=== PATIENT | female | born 1945 | race Caucasian/White ===

== ENCOUNTER 2017-02-17 05:16 | Inpatient (IN) | payer OTHER, MEDICARE ==
[~2017-02-17] VITALS: Ht 160 cm; Wt 93.0 kg
[2017-02-17] MEDS ORDERED: PRAVASTATIN SOD10 M2 PO (05:29)
[2017-02-17] MEDS ORDERED: TOPROL XL25 M1 PO (05:29)
[2017-02-17] MEDS ORDERED: DEXILANT60 M1 PO (05:30)
[2017-02-17] MEDS ORDERED: ASPIRIN81 M4 PO (05:32)
[2017-02-17] MEDS ORDERED: VITAMIN B-121000 MC3 PO (05:33)
[2017-02-17] MEDS ORDERED: CENTRUM SILVER1 EACH PO (05:33)
[2017-02-17] MEDS ORDERED: VITAMIN D31000 UNI1 PO (05:34)
[2017-02-17] MEDS ORDERED: CITRUCEL500 M1 PO (05:34)
--- NOTE | 2017-02-17 05:54 | ED CARDIAC/CP/PALPITATIONS ---
History of Present Illness General Chief Complaint: Palpitations Stated Complaint: PALPITATIONS Source: patient Exam Limitations: no limitations Vital Signs & Intake/Output Vital Signs & Intake/Output Vital Signs Date Time Temp Pulse Resp B/P B/P Pulse O2 O2 Flow FiO2 Mean Ox Delivery Rate 02/17 0641 84 168/90 02/17 0531 112 26 163/101 95 Room Air Allergies Coded Allergies: MDX - Aspirin (Aspirin) (UNKNOWN 07/21/13) MDX - Ibuprofen (Ibuprofen) (UNKNOWN 07/21/13) MDX - Morphine (Morphine) (NAUSEA 07/21/13) Reconcile Medications Aspirin (Aspirin*) 81 MG TAB.CHEW 81 MG PO DAILY HEART (Reported) Cholecalciferol (Vitamin D3) (Vitamin D3) 1,000 UNIT CAPSULE 1,000 UNIT PO DAILY VITAMIN (Reported) Cyanocobalamin (Vitamin B-12) 1,000 MCG TABLET 1,000 MCG PO DAILY VITAMIN ( Reported) Dexlansoprazole (Dexilant) 60 MG CAP.BP 60 MG PO DAILY GERD (Reported) Methylcellulose (Citrucel) 500 MG TABLET 1,000 MG PO DAILY VITAMIN (Reported) Metoprolol Succinate 25 MG TAB 25 MG PO DAILY HEART (Reported) Multivit-Min/Iron/Folic/Lutein (Centrum Silver Women Tablet) 8 MG IRON-400 MCG- 300 MCG TABLET 8 MG PO DAILY VITAMIN (Reported) Pravastatin Sodium 10 MG TABLET 10 MG PO DAILY CHOLESTEROL (Reported) Triage Note: 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 AFIB PT DENIES HX ALSO CO OF SOME SOB. ARRIVES SL PALE BLE PEDAL EDEMA 1-2+ PER PT HX OF SWELLING TO BLE "DURING WARMER WEATHER Triage Nurses Notes Reviewed? yes HPI: Patient presents for evaluation of intermittent heart palpitations that began abruptly about 2 months ago. Patient states that she has a distant history of atrial fibrillation but this has been well controlled on metoprolol. She states over the past 2 months she's had 3-4 episodes of irregular heart palpitations that typically last 10-15 minutes. Her current episode has lasted closer to an hour. She states she has a little chest heaviness a little shortness of breath and a little pain in the right jaw and ear. She states that although she saw a paper baling machine operator in [place] this was many years ago. Nothing seems to make the palpitations better. Past History Travel History Traveled to [place] past 21 day No Medical History Any Pertinent Medical History? see below for history Neurological: NONE EENT: NONE Cardiovascular: hypertension, CHOL Respiratory: NONE Gastrointestinal: NONE Hepatic: NONE Renal: NONE Musculoskeletal: NONE Psychiatric: NONE Endocrine: NONE Pneumonia Vaccine: 05/13/10 Surgical History Surgical History: non-contributory Psychosocial History Who do you live with Spouse Services at Home None What is your primary language Macedonian Tobacco Use: Never used Family History Hx Contributory? No Review of Systems Review of Systems Constitutional: Reports: no symptoms. EENTM: Reports: no symptoms. Respiratory: Reports: no symptoms. Cardiovascular: Reports: see HPI. GI: Reports: no symptoms. Genitourinary: Reports: no symptoms. Musculoskeletal: Reports: no symptoms. Skin: Reports: no symptoms. Neurological/Psychological: Reports: no symptoms. Hematologic/Endocrine: Reports: no symptoms. Immunologic/Allergic: Reports: no symptoms. All Other Systems: Reviewed and Negative Physical Exam Physical Exam Cardiovascular: SEE BELOW Comments: Gen.: Well-nourished, well-developed, no acute respiratory distress. Head: Normocephalic, atraumatic. Eyes: Normal inspection bilaterally Ears: Normal inspection bilaterally Nose: Normal inspection Throat/mouth : Moist mucosa Neck: Supple, full range of motion, no goiter Heart: Irregular rate and rhythm, no murmurs rubs or gallops Lungs: Clear to auscultation bilaterally with normal air entry Chest: Nontender Back: Normal range of motion Abdomen: Soft, nontender, nondistended, normal bowel sounds Extremities: Normal range of motion grossly, equal radial pulses, no cyanosis clubbing or edema Neurologic: Cranial nerves grossly intact, speech is clear Skin: warm and dry Psychiatric: Calm, cooperative, no apparent delusions or hallucinations Core Measures ACS in differential dx? No Severe Sepsis Present: No Septic Shock Present: No Progress Differential Diagnosis: atrial fibrillation Plan of Care: Orders Procedure Date/time Status Admit to inpatient 02/17 653 Active XRY-PORTABLE CHEST XRAY 02/17 535 Active URINALYSIS 02/17 535 Complete TROPONIN LEVEL 02/17 535 Complete PROTHROMBIN TIME 02/17 535 Complete COMPREHENSIVE METABOLIC PANEL 02/17 535 Complete CBC WITHOUT DIFFERENTIAL 02/17 535 Complete B-TYPE NATRIURETIC PEP (BNP) 02/17 535 Complete EKG 02/17 517 Active Current Medications Sig/Casie Start time Last Medication Dose Stop Time Status Admin Diltiazem HCl 125 MG Q12H 02/17 0600 UNVr 02/17 (Cardizem DRIP) 0624 Sodium Chloride 100 ML (Normal Saline 0.9%) Laboratory Tests 02/17/17 0550: Anion Gap 10, Estimated GFR > 60, BUN/Creatinine Ratio 30.0 H, Glucose 93, Calcium 10.0, Total Bilirubin 0.6, AST 26, ALT 34, Alkaline Phosphatase 63, Troponin I < 0.01, Qcd-H-Zdbfsabvnmi Pept 165 H, Total Protein 7.7, Albumin 4.7 , Globulin 3.0, Albumin/Globulin Ratio 1.6, PT 10.8, INR 1.03, CBC w Diff NO MAN DIFF REQ, RBC 4.79, MCV 94.1, MCH 31.4 H, RDW 13.3, MPV 9.9, Gran % 34.9 L, Lymphocytes % 55.1 H, Monocytes % 7.7, Eosinophils % 1.7, Basophils % 0.6, Absolute Granulocytes 1.9, Absolute Lymphocytes 3.0, Absolute Monocytes 0.4, Absolute Eosinophils 0.1, Absolute Basophils 0, PUBS MCHC 33.3 02/17/17 0545: Urinalysis LIGHT H, Urine Color STRAW, Urine Clarity HAZY H, Urine pH 7.0, Ur Specific [place] 1.010, Urine Protein NEG, Urine Ketones NEG, Urine Nitrite NEG, Urine Bilirubin NEG, Urine Urobilinogen 0.2, Ur Leukocyte Esterase NEG, Ur Microscopic SEDIMENT EXAMINED, Urine RBC 3-5, Urine Bacteria RARE H, Urine Mucus RARE, Urine Hemoglobin TRACE-INTACT, Urine Glucose NEG Initial ED EKG: rate (110), AFIB, nonspecific ST T wave chg Prior EKG: changed (nsr ON PRIOR) Comments: 02/17/2017 6:50:28 AM patient's case discussed with hospitalist and Dr. Jose Simpson. I have held on heparinization as I am optimistic that the patient will convert based on her history of relatively brief episodes of atrial fibrillation. Departure Departure Disposition: STILL A PATIENT Condition: Stable Clinical Impression Primary Impression: Atrial fibrillation Qualifiers: Atrial fibrillation type: paroxysmal Qualified Code: I48.0 - Paroxysmal atrial fibrillation Referrals: DARBY TOBAR MD (PCP/Family) Departure Forms: Customer Survey General Discharge Information Admission Note Spoke With: BRIAN BROWN,TIFFANY Heath Documentation of Exam: Documentation of any treatments & extenuating circumstances including Concerns Regarding Discharge (functional status, medication knowledge or non-compliance, living conditions, etc.) that warrant an admission rather than observation: Patient is in a paroxysmal atrial fibrillation, placing her at risk of tachycardia, hypotension, chest pain, shortness of breath and cardioembolic phenomenon including stroke. Patient currently requires an IV Cardizem drip for rate control. I do not feel she is a good candidate for outpatient management given the need for the IV Cardizem drip and continuous cardiac monitoring. I feel this patient needs hospitalization and cardiology consultation. Anticoagulation should be considered if the patient's atrial fibrillation does not resolve rapidly. Serial troponin should also be obtained. Echocardiogram should also be obtained for possible valve disease. Patient's medications will need adjusting. Given this patient's advanced age and history of hypertension, I feel she will require a multiple day hospitalization. Critical Care Note Critical Care Note Critical Care Time: 30-74 min
[2017-02-17 05:59] LABS: ABSOLUTE BASOPHIL COUNT 0 /CUMM (0.0-0.2); ABSOLUTE EOSINOPHIL COUNT 0.1 /CUMM (0.0-0.7); ABSOLUTE GRANULOCYTE CT 1.9 /CUMM (1.4-6.5); ABSOLUTE MONOCYTE COUNT 0.4 /CUMM (0.10-0.60); BASOPHIL % 0.6 % (0.0-2.0); EOSINOPHIL % 1.7 % (0-5); GRANULOCYTE % 34.9 % (42.2-75.2); HEMATOCRIT 45.1 % (37-47); MEAN CORPUSCULAR HGB 31.4 PG (27.0-31.0); MEAN CORPUSCULAR HGB CONC 33.3 G/DL (33.0-37.0); MEAN CORPUSCULAR VOLUME 94.1 FL (81.0-99.0); MEAN PLATELET VOLUME 9.9 FL (7.4-10.4); PLATELET COUNT 183 /CUMM (130-400); RBC DISTRIBUTION WIDTH 13.3 % (11.5-14.5); RED BLOOD CELL CT 4.79 /CUMM (4.20-5.40); WHITE BLOOD CELL COUNT 5.4 /CUMM (4.8-10.8)
[2017-02-17 06:05] LABS: PT 10.8 SEC (9.4-12.5)
--- NOTE | 2017-02-17 07:17 | RADIOLOGY REPORT ---
EXAMINATION: XR PORTABLE CHEST CLINICAL INFORMATION: Palpitations. COMPARISON: 05/13/2010 TECHNIQUE: Portable AP view of the chest was obtained. FINDINGS: The lung volumes are decreased with the cardiac silhouette obscuring visualization of the left lower lobe. No evidence of pulmonary edema or obvious pleural effusion. The cardiac silhouette is mildly enlarged, unchanged. IMPRESSION: Low lung volumes. Cardiac silhouette mildly enlarged, unchanged. The lungs are clear.
--- NOTE | 2017-02-17 09:15 | History & Physical ---
PARMINDER BROWN,[facility] 02/17/17 0913: General Information and [facility] MD Statement: I have seen and personally examined GLENN BALES and documented this H&P. The patient is a 72 year old F who presented with a patient stated chief complaint of [Palpitations and chest discomfort]. Source of Information: patient, old records Exam Limitations: no limitations History of Present Illness: Ms. Bales is a 72 year old woman with a past medical history of hypertension, hyperlipidemia, intermittent palpitations, GERD, irritable bowel syndrome, osteopenia and chronic back pain. She presents with sudden onset of palpitations, shortness of breath and retrosternal chest discomfort this morning. She has been having intermittent episodes of palpitations lasting about 10 minutes over the last few months, and indeed her history of palpitations go back to 2009 when she was admitted and worked up for similar symptoms in . An echocardiogram at that time in 2009 showed a normal EF of 60% and she states that she subsequently had a negative stress test in [facility]. However this morning after waking up around 4:30 am and going to urinate in the bathroom she developed palpitations while she was sitting at rest. This was associated with retrosternal chest discomfort that was 7/10 intensity and involved the right side of her jaw and right ear. She also had associated shortness of breath, lightheadedness and sweating but denied nausea or vomiting. Her entire episode lasted about 45 minutes until she was brought to the ER by her . It was relieved after she was started on a IV Cardizem drip in the ER. She also noted intermittent leg swelling that has been going on for some years and she states that this is usually worse during the summer. She denies orthopnea or paroxysmal nocturnal dyspnea. She denies cough, shortness of breath, wheeze, abdominal pain, diarrhea, constipation (patient does have a history of irritable bowel syndrome with constipation intermittent with diarrhea), bleeding per rectum, loss of appetite, dysuria or hematuria (she does have urge incontinence and is on tolterodine and diapers). She denies headache, numbness or weakness of any part of the body. She does note some mechanical falls over the past year and states that she has problems with her balance. Allergies/Medications Allergies: Coded Allergies: aspirin (UNKNOWN 02/17/17) ibuprofen (UNKNOWN 02/17/17) morphine (NAUSEA 02/17/17) Home Med list Apixaban (Eliquis) 5 MG TABLET 1 TAB PO BID BLOOD THINNER Cholecalciferol (Vitamin D3) (Vitamin D3) 1,000 UNIT CAPSULE 1,000 UNIT PO DAILY VITAMIN (Reported) Cyanocobalamin (Vitamin B-12) 1,000 MCG TABLET 1,000 MCG PO DAILY VITAMIN ( Reported) Dexlansoprazole (Dexilant) 60 MG CAP.DR.BP 60 MG PO DAILY GERD (Reported) Dronedarone HCl (Multaq) 400 MG TABLET 1 TAB PO BID atrial fibrillation Methylcellulose (Citrucel) 500 MG TABLET 1,000 MG PO DAILY VITAMIN (Reported) Metoprolol Succ XL (Toprol XL) 25 MG TAB 0.5 TAB PO DAILY Blood pressure ( Reported) Multivit-Min/Iron/Folic/Lutein (Centrum Silver Women Tablet) 8 MG IRON-400 MCG- 300 MCG TABLET 8 MG PO DAILY VITAMIN (Reported) Pravastatin Sodium 10 MG TABLET 10 MG PO DAILY CHOLESTEROL (Reported) Tolterodine Tartrate (Detrol LA) 4 MG CAP.ER.24H 1 CAP PO DAILY Bladder/urge incontinence (Reported) Compliance With Home Meds: GOOD Past History Travel History Traveled to [place] past 21 day No Medical History Neurological: NONE EENT: NONE Cardiovascular: hypertension, CHOL, palpitations Respiratory: NONE Gastrointestinal: GERD, irritable bowel syndrome Hepatic: NONE Renal: NONE Musculoskeletal: chronic back pain Psychiatric: NONE Endocrine: NONE Isolation History: Standard Pneumonia Vaccine: 05/13/10 Surgical History Surgical History: cholecystectomy (laparoscopic 2012), cataract removal ( bilateral), hysterectomy, Hand surgery 1994, left knee replacement 2005 ECHO Results (as available) Date of last Echo 05/13/10 EF% 60 Past Family/Social History Family History Relations & Conditions if any SISTER FH: CHF (congestive heart failure) MOTHER FH: heart disease FHx: melanoma Psychosocial History Where do you live? Home Who Do You Live With? spouse Services at Home: None Primary Language: Namibian Smoking Status: Former Smoker (4 years in college-1 stick/day) ETOH Use: occasional use Illicit Drug Use: denies illicit drug use Functional Ability ADLs Independent: dressing, eating, toileting, bathing. 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 Denies: chills, fever, malaise, weakness. EENTM: Denies: visual changes, throat pain. Musculoskeletal: Reports: back pain. Exam & Diagnostic Data Last 24 Hrs of Vital Signs/I&O Vital Signs Date Time Temp Pulse Resp B/P B/P Pulse O2 O2 Flow FiO2 Mean Ox Delivery Rate 02/17 0951 98.6 68 20 132/82 97 Room Air 02/17 0818 96.6 69 15 148/75 99 Room Air Room Air 02/17 0641 84 168/90 02/17 0531 112 26 163/101 95 Room Air Intake & Output 02/17 1600 02/17 0800 02/17 0000 Intake Total Output Total Balance Patient 205 lb 210 lb Weight Weight Estimated Measurement Method Physical Exam General Appearance Alert, Oriented X3, Cooperative, No Acute Distress Skin No Rashes, No Breakdown Skin Temp/Moisture Exam: Warm/Dry Sepsis Skin Exam (color): Normal for Ethnicity HEENT Atraumatic, PERRLA, EOMI, Mucous Membr. moist/pink Neck Supple, No JVD, No thryomegaly Lymphatic Cervical nl Cardiovascular Normal S1, Normal S2, No Murmurs, irregularly irregular heart rhythm Lungs Clear to Auscultation, Normal Air Movement Abdomen Normal Bowel Sounds, Soft, No Tenderness, No Hepatospenomegaly, No Masses Neurological Normal Speech, Strength at 5/5 X4 Ext, Normal Tone Extremities +2 bilateral pedal edema Diagnostic Data EKG Results A. eliezer heart rate 110 bpm, QTC 466 ms CXR Results Cardiac silhouette mildly enlarged and unchanged. Lungs clear. Assessment/Plan Assessment: Ms. Bales is a 72 year old woman with a past medical history of hypertension, hyperlipidemia, intermittent palpitations, GERD, irritable bowel syndrome, osteopenia and chronic back pain. She presents with sudden onset of palpitations , shortness of breath and retrosternal chest discomfort this morning. Indeed her palpitation history goes back to 2009 when she was evaluated in with no significant findings. From her history and presentation, it is likely that she has been in paroxysmal atrial fibrillation , likely related to her hypertension, for some time now. Her [id number] score is 3 which indicates the need for anticoagulation. Her heart rate is now better controlled on Cardizem drip and she is free of chest discomfort and her palpitations are very mild at this time. She will be admitted to the telemetry unit for IV Cardizem drip and we will pursue cardiology consultation. She willl be started on a heparin drip and her home medications for hypertension-PO metoprolol XL 12.5 mg daily will be continued. In addition a PT evaluation would be obtained to evaluate her reported balance problems and recent mechanical falls at home. Problem list 1. Paroxysmal atrial fibrillation with rapid ventricular rate 2. Hypertension 3. GERD 4. Hyperlipidemia 5. Reported history of gait instability at home 6. History of chronic back pain 7. History of irritable bowel syndrome Plan 1. Paroxysmal atrial fibrillation with rapid ventricular rate * Admit to telemetry * Serial EKGs and troponins to rule out acute coronary syndrome * Echocardiogram * Cardiology consult and follow recommendations * Check TSH, free T4, magnesium and replete as needed * Continue Cardizem drip for rate control to keep her heart rate less than 110 beats per minutes * Start IV heparin drip (rectal stool guaiac was negative) * Monitor CBC for thrombocytopenia 2. Hypertension * Continue home medication of metoprolol XL 12.5 mg daily (patient has taken dose this morning) 3. GERD * Start by mouth omeprazole 40 mg daily 4. Hyperlipidemia * Continue pravastatin 10 daily 5. Reported history of gait instability at home * PT evaluation in the morning for gait imbalance and discharge recommendations 6. History of chronic back pain * Pain pathway by mouth Tylenol 650 mg Q 6 hrs PRN for mild pain, PO tramadol 50 mg Q 6 hrs PRN for moderate pain 7. History of irritable bowel syndrome * PO Senna S one tab twice a day when necessary for constipation 8. DVT prophylaxis * IV heparin drip 9. CODE STATUS * Full code As Ranked By This Provider Problem List: 1. Atrial fibrillation Qualifiers Atrial fibrillation type: paroxysmal Qualified Code: I48.0 - Paroxysmal atrial fibrillation Core Measures/Miscellaneous Acute Coronary Syndrome ACS Diagnosis: No Cerebrovascular Accident CVA/TIA Diagnosis: No Congestive Heart Failure CHF Diagnosis: No VTE (View Protocol) VTE Risk Factors: Acute medical illness, Age > 40 [facility] d/t: No contraindications No VTE Pharm Prophylaxis d/t: No contraindications VTE Diagnosis: No VTE Type: NONE VTE Confirmed by (Test): NONE Sepsis (View Protocol) Severe Sepsis Present: No Septic Shock Septic Shock Present: No Miscellaneous Documentation Attending Case Discussed With: D'ROSSTIFFANY ULLOA MD Primary Care Physician: DARBY TOBAR MD Patient sees these Specialists None Level of Patient Care: Telemetry Consults Needed: Consulting Specialty: Cardiology Consulting Physician: Dr. Rodriguez Reason for Consult: New onset atrial fibrillation TIFFANY TORRES MD 02/17/17 1143: Attending Review Statement Attending Statement Attending MD Statement: examined this patient, discuss w/resident/PA/PULP PLANT SUPERVISOR, agreed w/resident/PA/P[employer]P PLANT SUPERVISOR, reviewed EMR data (avail), reviewed images Attending Assessment/Plan: 72-year-old female past medical history of hypertension hyperlipidemia and GERD and a history of palpitations on and off for the past year who is here with new onset rapid A. fib of unclear duration. At this point will bring her into telemetry. Continue her by mouth metoprolol and she's been started on IV Cardizem by the ER 48 control. I am worried that given the history of palpitations on and off for the past year that she may have been going in and out of A. fib and will anticoagulate her empirically until we get the results of the echo and cardiology sees her. We'll check troponins to make sure that she doesn't have any ischemic demand in response to the rapid A. fib. Check TSH and free T4 but likely this is going to be long-standing hypertensive heart disease leading to A. fib. Will order an echo, call cardiology and follow closely.
[2017-02-17] MEDS ORDERED: GINKGO BILOBA40 M1 PO (09:29)
[2017-02-17] MEDS ORDERED: DETROL LA4 M1 PO (09:30)
[2017-02-17 09:51] VITALS: BP 132/82
--- NOTE | 2017-02-17 10:02 | Admission Certification ---
Admission Certification Certification Statement - As attending physician, I certify that at the time of - admission, based on clinical presentation, severity of - symptoms, need for further diagnostic testing and - therapeutic interventions, and risk of adverse outcomes - without in-hospital treatment, in my clinical assessment, - this patient requires an acute hospital stay for a minimum - of two nights or longer. I have also considered psychsocial - factors such as support system, advanced age, financial - issues, cognitive issues, and failed out-patient treatments, - past re-admission history, safety of patient, and lack of - compliance as applicable. Specific rationale supporting this admission is: New onset rapid A. fib needs IV Cardizem for rate control.
--- NOTE | 2017-02-17 11:38 | Cons- Cardiology ---
General Information and HPI Consulting Request Date of Consult: 02/17/17 Requested By: TIFFANY TORRES MD Reason for Consult: "New onset" atrial fibrillation. Source of Information: patient Exam Limitations: no limitations History of Present Illness: Mrs. Bales is a 72-year-old female who has been generally healthy. She is being treated for hypertension and dyslipidemia. She does not have any history of ischemic heart disease or any chest pain or shortness of breath on exertion. She was here in 2009 for a brief overnight evaluation of palpitations where she was found only to have PVCs. At that time she was advised to have a an outpatient stress test which she apparently had in [place] and was told it was negative. She has not subsequently needed to follow-up with cardiology but has been following with her primary care physician, Darby Tobar MD. Over the past few months she has noted palpitations which she describes as pounding and thumping in the chest lasting about 15 minutes or so. This morning she got up at about 4:30 in the morning to go to the bathroom and noticed the same palpitations. However, this did not resolve in the usual period of time and she came to the emergency room. She got here about 5:20 in the morning and her EKG at that time showed atrial fibrillation at a rate of 110 and no other acute changes. She was started on Cardizem drip and transferred to the floor where she spontaneously converted to sinus rhythm at around 10 AM. At that time she began to feel better. She did not have any chest pain but she did have some discomfort in her jaw at that time. She has not had any other cardiac symptoms such as orthopnea, PND, ankle edema, dizziness, syncope. Allergies/Medications Allergies: Coded Allergies: aspirin (UNKNOWN 02/17/17) ibuprofen (UNKNOWN 02/17/17) morphine (NAUSEA 02/17/17) Home Med List: Aspirin (Aspirin*) 81 MG TAB.CHEW 81 MG PO DAILY HEART (Reported) Cholecalciferol (Vitamin D3) (Vitamin D3) 1,000 UNIT CAPSULE 1,000 UNIT PO DAILY VITAMIN (Reported) Cyanocobalamin (Vitamin B-12) 1,000 MCG TABLET 1,000 MCG PO DAILY VITAMIN ( Reported) Dexlansoprazole (Dexilant) 60 MG CAP.DR.BP 60 MG PO DAILY GERD (Reported) Ginkgo Biloba 40 MG CAPSULE 5 CAP PO DAILY supplement (Reported) Methylcellulose (Citrucel) 500 MG TABLET 1,000 MG PO DAILY VITAMIN (Reported) Metoprolol Succ XL (Toprol XL) 25 MG TAB 0.5 TAB PO DAILY Blood pressure ( Reported) Multivit-Min/Iron/Folic/Lutein (Centrum Silver Women Tablet) 8 MG IRON-400 MCG- 300 MCG TABLET 8 MG PO DAILY VITAMIN (Reported) Pravastatin Sodium 10 MG TABLET 10 MG PO DAILY CHOLESTEROL (Reported) Tolterodine Tartrate (Detrol LA) 4 MG CAP.ER.24H 1 CAP PO DAILY Bladder/urge incontinence (Reported) Current Medications: Current Medications Sig/Casie Start time Last Medication Dose Route Stop Time Status Admin Acetaminophen 650 MG Q6P PRN 02/17 1100 AC PO Apixaban 5 MG BID 02/17 2200 AC 02/18 PO 0955 Aspirin 81 MG DAILY 02/18 1000 AC 02/18 PO 1052 Calcium Carbonate 500 MG ONCE ONE 02/17 2015 DC 02/17 PO 02/17 2016 204 Cholecalciferol 1,000 IU DAILY 02/17 1000 AC 02/18 PO 1052 Cyanocobalamin 1,000 MCG DAILY 02/17 1000 AC 02/18 PO 1052 Diltiazem HCl 125 MG Q12H 02/17 0600 DC 02/17 Sodium Chloride 100 ML IV 0624 Dronedarone 400 MG BID 02/17 1500 AC 02/18 PO 0955 Heparin Sodium 25,000 UNIT Q24H / 1000 DC 02/17 (Porcine) IV / 2100 1302 Sodium Chloride 500 ML Metoprolol Succinate 12.5 MG DAILY 02/18 1000 AC PO Multivitamins 1 TAB DAILY 02/17 1000 AC 02/18 PO 1052 Omeprazole 40 MG DAILY AC 02/17 0945 AC 02/18 PO 0559 Oxybutynin Chloride 2.5 MG TID 02/17 1000 AC 02/18 PO 1052 Pravastatin Sodium 10 MG 1700 02/17 1700 AC 02/17 PO 1634 Senna/Docusate Sodium 1 TAB BID PRN 02/17 1100 AC PO Tramadol HCl 50 MG Q6P PRN 02/17 1100 AC PO Review of Systems Review of Systems: She has no other complaints in the review of systems. 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 Home Who Do You Live With? spouse Services at Home: None Primary Language: Armenian Smoking Status: Former Smoker (4 years in college-1 stick/day) ETOH Use: occasional use Illicit Drug Use: denies illicit drug use Functional Ability ADLs Independent: dressing, eating, toileting, bathing. 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 ECHO Results (as available) Date of last Echo 05/13/10 EF% 60 Exam & Diagnostic Data Vital Signs and I&O Vital Signs Date Time Temp Pulse Resp B/P B/P Pulse O2 O2 Flow FiO2 Mean Ox Delivery Rate 02/17 0951 98.6 68 20 132/82 97 Room Air 02/17 0818 96.6 69 15 148/75 99 Room Air Room Air 02/17 0641 84 168/90 02/17 0531 112 26 163/101 95 Room Air Intake & Output 02/17 1600 02/17 0800 02/17 0000 02/16 1600 02/16 0800 02/16 0000 Intake Total Output Total Balance Patient 205 lb 210 lb Weight Weight Estimated Measurement Method Physical Exam: This is a well-developed obese elderly female in no acute distress HEENT exam is normal Neck veins not distended Carotids normal without bruits Chest clear to percussion and auscultation Heart regular rhythm, no murmurs, gallops or rubs Abdomen benign Extremities good pulses, no edema Labs/Toro Results: Laboratory Tests 02/17 02/17 0550 0545 Chemistry Sodium (137 - 145 mmol/L) 145 Potassium (3.5 - 5.1 mmol/L) 4.1 Chloride (98 - 107 mmol/L) 109 H Carbon Dioxide (22 - 30 mmol/L) 26 Anion Gap (5 - 16) 10 BUN (7 - 17 mg/dL) 15 Creatinine (0.5 - 1.0 mg/dL) 0.5 Estimated GFR (>60 ml/min) > 60 BUN/Creatinine Ratio (7 - 25 %) 30.0 H Glucose (65 - 99 mg/dL) 93 Calcium (8.4 - 10.2 mg/dL) 10.0 Magnesium (1.6 - 2.3 mg/dL) 2.1 Total Bilirubin (0.2 - 1.3 mg/dL) 0.6 AST (14 - 36 U/L) 26 ALT (9 - 52 U/L) 34 Alkaline Phosphatase (<127 U/L) 63 Troponin I (< 0.11 ng/ml) < 0.01 Imt-[id number] Pept (<125 pg/mL) 165 H Total Protein (6.3 - 8.2 g/dL) 7.7 Albumin (3.5 - 5.0 g/dL) 4.7 Globulin (1.9 - 4.2 gm/dL) 3.0 Albumin/Globulin Ratio (1.1 - 2.2 %) 1.6 TSH (0.270 - 4.200 uIU/mL) 2.380 Free T4 (0.78 - 2.44 ng/dL) 0.92 Coagulation PT (9.4 - 12.5 SEC) 10.8 INR (0.90 - 1.19) 1.03 Hematology CBC w Diff NO MAN DIFF REQ WBC (4.8 - 10.8 /CUMM) 5.4 RBC (4.20 - 5.40 /CUMM) 4.79 Hgb (12.0 - 16.0 G/DL) 15.0 Hct (37 - 47 %) 45.1 MCV (81.0 - 99.0 FL) 94.1 MCH (27.0 - 31.0 PG) 31.4 H RDW (11.5 - 14.5 %) 13.3 Plt Count (130 - 400 /CUMM) 183 MPV (7.4 - 10.4 FL) 9.9 Gran % (42.2 - 75.2 %) 34.9 L Lymphocytes % (20.5 - 51.1 %) 55.1 H Monocytes % (1.7 - 9.3 %) 7.7 Eosinophils % (0 - 5 %) 1.7 Basophils % (0.0 - 2.0 %) 0.6 Absolute Granulocytes (1.4 - 6.5 /CUMM) 1.9 Absolute Lymphocytes (1.2 - 3.4 /CUMM) 3.0 Absolute Monocytes (0.10 - 0.60 /CUMM) 0.4 Absolute Eosinophils (0.0 - 0.7 /CUMM) 0.1 Absolute Basophils (0.0 - 0.2 /CUMM) 0 PUBS MCHC (33.0 - 37.0 G/DL) 33.3 Urines Urinalysis LIGHT H Urine Color (YEL,AMB,STR) STRAW Urine Clarity (CLEAR) HAZY H Urine pH (5.0 - 8.0) 7.0 Ur Specific [place] (1.001 - 1.035) 1.010 Urine Protein (NEG,<30 MG/DL) NEG Urine Ketones (NEG) NEG Urine Nitrite (NEG) NEG Urine Bilirubin (NEG) NEG Urine Urobilinogen (0.1 - 1.0 EU/dl) 0.2 Ur Leukocyte Esterase (NEG) NEG Ur Microscopic SEDIMENT EXAMINED Urine RBC (0 - 5 /HPF) 3-5 Urine Bacteria (NEG/NONE) RARE H Urine Mucus (FEW,NONE) RARE Urine Hemoglobin (NEG) TRACE-INTACT Urine Glucose (N MG/DL) NEG Diagnostic Data EKG Results Initial electrocardiogram at 5:21 AM showed atrial fibrillation rate of 110, borderline left axis deviation, nonspecific T-wave changes. Repeat EKG at 10 AM shows sinus rhythm rate of 66, borderline left axis deviation, very minor nonspecific anterior T-wave changes. CXR Results IMPRESSION: Low lung volumes. Cardiac silhouette mildly enlarged, unchanged. The lungs are clear. DICTATED BY: KIKA DE JESUS MD DATE/TIME DICTATED:02/17/17711 FLUTE TEACHER:TAVO DATE/TIME TRANSCRIBED:02/17/17711 CONFIDENTIAL, DO NOT COPY WITHOUT APPROPRIATE AUTHORIZATION. <Electronically signed in Other Vendor System> SIGNED BY: KKIA DE JESUS MD 02/17/17716 Assessment/Plan Assessment/Plan Mrs. Bales is a 72-year-old female with underlying hypertension, dyslipidemia, obesity but no ischemic heart disease. She does have an enlarged heart on chest x-ray. Her EKG in sinus rhythm is basically unremarkable. She has had several months of brief palpitations which have spontaneously resolved. This morning she developed a prolonged episode of palpitations and was found to be in atrial fibrillation at a moderate rate. She has subsequently spontaneously converted to sinus rhythm. There is no evidence of congestive heart failure. The patient's evaluation should consist of an echocardiogram. I would recommend starting her on an antiarrhythmic drug such as Multaq to hopefully stabilize her rhythm. I think she should also be anticoagulated and I would pick one of the newer oral anticoagulants for this purpose. I would definitely watch her for the next 24 hours on the monitor to see if she has any recurrence of atrial fibrillation. If she does not and her echo does not show anything major she can probably be discharged tomorrow. Copies To: DARBY TOBAR MD Consult Acknowledgment - Thank you for your consult request.
[2017-02-17 15:50] VITALS: BP 122/64
[2017-02-17 23:06] VITALS: BP 120/68
--- NOTE | 2017-02-18 06:47 | PN- Housestaff ---
See Addendum Subjective Follow-up For: 1. Paroxysmal atrial fibrillation with rapid ventricular rate 2. Hypertension Complaints: no complaints Tele-Events Since Last Visit: sinus bradycardia, 42-92, this morning she is at 52 Subjective: I personally examined Mrs Ricky Olivia this morning at bed side , she was feeling better with no complains , breathing room air Review of Systems Constitutional: Denies: no symptoms. EENTM: Reports: no symptoms. Cardiovascular: Reports: see HPI. Respiratory: Reports: no symptoms. Gastrointestinal: Reports: vomiting. Genitourinary: Reports: no symptoms. Musculoskeletal: Reports: no symptoms. Skin: Reports: no symptoms. Neurological/Psychological: Reports: no symptoms. Hematologic/Endocrine: Reports: no symptoms. Immunologic/Allergic: Reports: no symptoms. Objective Last 24 Hrs of Vital Signs/I&O Vital Signs Date Time Temp Pulse Resp B/P B/P Pulse O2 O2 Flow FiO2 Mean Ox Delivery Rate 02/18 0720 98.8 61 18 148/72 96 Room Air 02/18 0000 95 Room Air 02/17 2333 67 120/78 02/17 2306 98.2 58 18 120/68 95 Room Air 02/17 1550 97.8 53 16 122/64 97 Room Air 02/17 0951 98.6 68 20 132/82 97 Room Air 02/17 0818 96.6 69 15 148/75 99 Room Air Room Air Intake & Output 02/18 1600 /03 0800 02/18 0000 Intake Total 150 530 Output Total 50 Balance 100 530 Intake, IV 180 Intake, Oral 150 350 Output, 50 Emesis Physical Exam General Appearance: Alert, Oriented X3, Cooperative, No Acute Distress Skin: No Rashes, No Breakdown, No Significant Lesion Skin Temp/Moisture Exam: Warm/Dry Sepsis Skin Exam (color): Normal for Ethnicity HEENT: Atraumatic, PERRLA, EOMI, Mucous Membr. moist/pink Neck: Supple, No JVD Cardiovascular: Regular Rate, Normal S1, Normal S2, No Murmurs Lungs: Clear to Auscultation, Normal Air Movement Abdomen: Normal Bowel Sounds, Soft, No Tenderness Neurological: Normal Speech, Strength at 5/5 X4 Ext, Normal Tone, Sensation Intact, Cranial Nerves 3-12 NL Extremities: No Clubbing, No Cyanosis, No Edema (1+ ptting edema bilateral), Normal Pulses, No Tenderness/Swelling Current Medications: Current Medications Sig/Casie Start time Last Medication Dose Route Stop Time Status Admin Acetaminophen 650 MG Q6P PRN 02/17 1100 AC PO Apixaban 5 MG BID 02/17 2200 AC 02/17 PO 1930 Aspirin 81 MG DAILY 02/18 1000 AC PO Calcium Carbonate 500 MG ONCE ONE 02/17 2015 DC 02/17 PO 02/17 2016 2045 Cholecalciferol 1,000 IU DAILY 02/17 1000 AC 02/17 PO 1302 Cyanocobalamin 1,000 MCG DAILY 02/17 1000 AC 02/17 PO 1302 Diltiazem HCl 125 MG Q12H 02/17 0600 DC 02/17 Sodium Chloride 100 ML IV 0624 Dronedarone 400 MG BID 02/17 1500 AC 02/17 PO 2333 Enoxaparin Sodium 40 MG DAILY 02/17 1000 CAN SC Heparin Sodium 25,000 UNIT Q24H 02/17 1000 DC 02/17 (Porcine) IV 02/17 2100 1302 Sodium Chloride 500 ML Metoprolol Succinate 12.5 MG DAILY 02/18 1000 AC PO Multivitamins 1 TAB DAILY 02/17 1000 AC 02/17 PO 1302 Omeprazole 40 MG DAILY AC 02/17 0945 AC 02/18 PO 0559 Oxybutynin Chloride 2.5 MG TID 02/17 1000 AC 02/17 PO 2045 Pravastatin Sodium 10 MG 1700 02/17 1700 AC 02/17 PO 1634 Senna/Docusate Sodium 1 TAB BID PRN 02/17 1100 AC PO Tramadol HCl 50 MG Q6P PRN 02/17 1100 AC PO Last 24 Hrs of Lab/Toro Results Last 24 Hrs of Labs/Mics: Laboratory Tests 02/18/17 0635: CBC w Diff Pending, WBC Pending, RBC Pending, Hgb Pending, Hct Pending, MCV Pending, MCH Pending, RDW Pending, Plt Count Pending, MPV Pending, PUBS MCHC Pending 02/17/17 1900: APTT Cancelled 02/17/17 1800: Troponin I Cancelled 02/17/17 1225: Troponin I < 0.01 Orders EKG Findings: 02/17/17 Initial electrocardiogram at 5:21 AM showed atrial fibrillation rate of 110, borderline left axis deviation, nonspecific T-wave changes. Repeat EKG at 10 AM shows sinus rhythm rate of 66, borderline left axis deviation, very minor nonspecific anterior T-wave changes. Radiology Findings: Cardiac silhouette mildly enlarged and unchanged. Lungs clear. Assessment/Plan Assessment: Assessment: Ms. Bales is a 72 year old lady with a past medical history of hypertension, hyperlipidemia, intermittent palpitations, GERD, irritable bowel syndrome, osteopenia and chronic back pain. She presented yesterday with sudden onset of palpitations, shortness of breath and retrosternal chest discomfort, the patient feels much better today , she remained in sinus rhythm for the last 24 hours, she reported only one episode of vomiting of small amount of bilious non bloody vomitus, Her echocardiogram did not show any major abnormalities, just LVH Plan * patient was stable at the time of discharge * She was advised to follow-up with Dr. Rodriguez within 2 weeks of discharge , * She was advised follow up with her PCP within 1 week of discharge * her aspirin was stopped for now as per cardiology recommendation * She was advised to take her medications as instructed Problem List: 1. Atrial fibrillation 2. Hypertension 3. GERD (gastroesophageal reflux disease) 4. Hyperlipidemia 5. History of chronic back pain 6. History of irritable bowel syndrome Pain Ratin Pain Location: n/a Pain Goal: Remain pain free Pain Plan: Avoid NSAIDs Tomorrow's Labs & Rationales: Patient does not require as discharged DVT/Prophylaxis: early ambulation low risk Consulting Request: Consulting Specialty: Cardiology Consulting Physician: Dr. Rodriguez Reason for Consult: New onset atrial fibrillation 50 mg Q 6 hrs PRN for moderate pain 7. History of irritable bowel syndrome * PO Senna S one tab twice a day when necessary for constipation 8. DVT prophylaxis * IV heparin drip 9. CODE STATUS * Full code Consulting Request: Consulting Specialty: Cardiology Consulting Physician: Dr. Rodriguez Reason for Consult: New onset atrial fibrillation
[2017-02-18 07:20] VITALS: BP 148/72
[2017-02-18 08:04] LABS: ABSOLUTE BASOPHIL COUNT 0 /CUMM (0.0-0.2); ABSOLUTE EOSINOPHIL COUNT 0.1 /CUMM (0.0-0.7); ABSOLUTE GRANULOCYTE CT 3.4 /CUMM (1.4-6.5); ABSOLUTE LYMPH COUNT 1.2 /CUMM (1.2-3.4); ABSOLUTE MONOCYTE COUNT 0.3 /CUMM (0.10-0.60); RED BLOOD CELL CT 4.16 /CUMM (4.20-5.40)
[2017-02-18 08:32] LABS: BASOPHIL % 0.4 % (0.0-2.0); EOSINOPHIL % 1.2 % (0-5); MEAN CORPUSCULAR HGB 31.7 PG (27.0-31.0); MEAN CORPUSCULAR HGB CONC 33.7 G/DL (33.0-37.0); MEAN PLATELET VOLUME 10.6 FL (7.4-10.4); PLATELET COUNT 153 /CUMM (130-400); RBC DISTRIBUTION WIDTH 13.4 % (11.5-14.5)
[2017-02-18 08:40] LABS: GRANULOCYTE % 68.1 % (42.2-75.2); HEMATOCRIT 39.1 % (37-47)
--- NOTE | 2017-02-18 09:51 | ECHOCARDIOGRAM REPORT ---
GLENN FINN Age: 72 : 1945 Gender: F Exam Date: 02/17/2017 14:11 Exam Location: 1 [address] Ht (in): 63 Wt (lb): 204 BSA: 2.07 BP: 132 / 82 Ordering Physician: BRENDAN ZURITA MD Referring Physician: Jose Rodriguez MD Chief, SoC Technologist: Rosa M Solitario [facility] Room Number: [id number] Indications: AFIB/FLUTTER Rhythm: Sinus Technical Quality: Good FINDINGS Left Ventricle Normal size left ventricle. Moderate concentric left ventricular hypertrophy. Normal left ventricular ejection fraction visually estimated at >65 %. No obvious regional wall motion abnormalities. Abnormal relaxation filling pattern of the left ventricle for age (stage 1 diastolic dysfunction). Right Ventricle The right ventricle is normal in size and function. Right Atrium The right atrium is normal in size. Left Atrium The left atrium is normal in size. The interatrial septum is intact. Mitral Valve Mild thickening/calcification of the mitral valve leafleta. Mild mitral annular calcification. No mitral regurgitation. Aortic Valve Focal thickening of the aortic valve cusps. No aortic stenosis. Mild aortic regurgitation. Tricuspid Valve The tricuspid valve is normal in structure and function. There is trace tricuspid regurgitation. Pulmonary artery systolic pressure is normal. Pulmonic Valve Structurally normal pulmonic valve. There is mild pulmonic regurgitation. Pericardium Normal pericardium without effusion. No pleural effusion. Great Vessels The aortic root and ascending aorta are upper limits of normal in diameter. CONCLUSIONS Moderate concentric left ventricular hypertrophy. Normal left ventricular ejection fraction visually estimated at >65 Abnormal relaxation filling pattern of the left ventricle for age (stage 1 diastolic dysfunction). The left atrium is normal in size. Mild thickening/calcification of the mitral valve leafleta. Mild mitral annular calcification. Focal thickening of the aortic valve cusps. No aortic stenosis. Mild aortic regurgitation. Pulmonary artery systolic pressure is normal. The aortic root and ascending aorta are upper limits of normal in diameter. Jose Rodriguez M.D. (Electronically Signed) Final Date: 18 February 2017 09:50 MEASUREMENTS (Male / Female) Normal Values 2D ECHO LV Diastolic Diameter PLAX 4.4 cm 4.2 - 5.9 / 3.9 - 5.3 cm LV Systolic Diameter PLAX 2.3 cm 2.1 - 4.0 cm LV Fractional Shortening PLAX 47.7 % 25 - 46 % LV Ejection Fraction 2D Teich 79.3 % IVS Diastolic Thickness 1.4 cm LVPW Diastolic Thickness 1.3 cm LV Relative Wall Thickness 0.6 RV Internal Dim ED PLAX 3.4 cm 1.9 - 3.8 cm LVOT Diameter 2.1 cm Aortic Root Diameter 3.4 cm LA Systolic Diameter LX 4.5 cm 3.0 - 4.0 / 2.7 - 3.8 cm LA Volume 37.0 cm 18 - 58 / 22 - 52 cm Ascending Aorta Diameter 3.6 cm DOPPLER AV Peak Velocity 105.0 cm/s AV Peak Gradient 4.4 mmHg AV Mean Velocity 70.7 cm/s AV Mean Gradient 2.0 mmHg AV Velocity Time Integral 24.5 cm LVOT Peak Velocity 77.5 cm/s LVOT Peak Gradient 2.4 mmHg LVOT Mean Velocity 48.6 cm/s LVOT Mean Gradient 1.0 mmHg LVOT Velocity Time Integral 15.2 cm LVOT Stroke Volume 52.6 cm AV Area Cont Eq vti 2.1 cm AV Area Cont Eq pk 2.6 cm MV Peak Velocity 105.0 cm/s MV Peak Gradient 4.4 mmHg MV Mean Velocity 59.8 cm/s MV Mean Gradient 2.0 mmHg Mitral E Point Velocity 59.2 cm/s Mitral A Point Velocity 92.8 cm/s Mitral E to A Ratio 0.6 MV PHT Velocity 78.2 cm/s MV Deceleration [place] 212.0 cm/s MV Pressure Half Time 110.7 ms MV Area PHT 2.0 cm MV Deceleration Time 280.0 ms TR Peak Velocity 176.0 cm/s TR Peak Gradient 12.4 mmHg Right Atrial Pressure 5.0 mmHg Pulmonary Artery Systolic Pressu 17.4 mmHg Right Ventricular Systolic Press 17.4 mmHg PV Peak Velocity 91.9 cm/s PV Peak Gradient 3.4 mmHg PV Mean Velocity 67.2 cm/s PV Mean Gradient 2.0 mmHg PV Velocity Time Integral 25.5 cm LV E' Lateral Velocity 4.2 cm/s Mitral E to LV E' Lateral Ratio 14.1 LV E' Septal Velocity 6.1 cm/s Mitral E to LV E' Septal Ratio 9.6
[2017-02-18 09:56] VITALS: BP 148/72
[2017-02-18] MEDS ORDERED: MULTAQ400 M1 PO (11:02)
[2017-02-18] MEDS ORDERED: ELIQUIS5 M2 PO (11:02)
--- NOTE | 2017-02-18 11:03 | Patient Discharge Instructions ---
Discharge Instructions General Discharge Information You were seen/treated for: PALPITATIONS/ ATRIAL FIBRILATION Special Instructions: 1. PLEASE F/U WITH DR PLASCENCIA WITHIN 2 WEEKS OF DISCHARGE. 2.PLEASE F/U WITH YOUR PCP WITHIN 1 WEEK OF DISCHARGE. 3. STOPPED ASPIRIN FOR NOW. Diet Continue normal diet: No Recommended Diet: Heart Healthy Activity Full Activity/No Limits: Yes ( TOLERATED) Acute Coronary Syndrome Inclusion Criteria At DC or during hospital stay patient has or had the following: ACS DIAGNOSIS No Discharge Core Measures Meds if any: Prescribed or Continued at Discharge Meds if any: NOT Prescribed or Continued at Discharge Congestive Heart Failure Inclusion Criteria At DC or during hospital stay patient has or had the following: CHF DIAGNOSIS No Discharge Core Measures Meds if any: Prescribed or Continued at Discharge Meds if any: NOT Prescribed or Continued at Discharge Cerebrovascular accident Inclusion Criteria At DC or during hospital stay patient has or had the following: CVA/TIA Diagnosis No Discharge Core Measures Meds if any: Prescribed or Continued at Discharge Meds if any: NOT Prescribed or Continued at Discharge Venous thromboembolism Inclusion Criteria VTE Diagnosis No VTE Type NONE VTE Confirmed by (Test) NONE Discharge Core Measures - Per Current guidelines, there needs to be overlap - treatment for the first 5 days of Warfarin therapy. - If discharged on Warfarin prior to 5 days of - overlap therapy, the patient will need to be - assessed for post discharge needs including - *Post discharge parental anticoagulation - *Warfarin and/or parental anticoagulation education - *Follow up date to check INR post discharge At least 5 days overlap therapy as Inpatient No Meds if any: Prescribed or Continued at Discharge Note: Overlap Therapy is Warfarin and Anticoagulant Meds if any: NOT Prescribed or Continued at Discharge
--- NOTE | 2017-02-18 11:10 | PN- Cardiology ---
Subjective Subjective: The patient is feeling okay at this time. She has maintained sinus rhythm. She had an episode of vomiting early this morning, but no cardiac complaints. Otherwise she is tolerating her medications well. Her echocardiogram showed LVH with normal systolic function, normal left atrial size, normal pulmonary artery pressure. Objective Vital Signs and I&Os Vital Signs Date Time Temp Pulse Resp B/P B/P Pulse O2 O2 Flow FiO2 Mean Ox Delivery Rate 02/18 0956 58 148/72 02/18 0955 148/72 02/18 0720 98.8 61 18 148/72 96 Room Air 07 0000 95 Room Air 02/17 2333 67 120/78 07 2306 98.2 58 18 120/68 95 Room Air 02/17 1550 97.8 53 16 122/64 97 Room Air Intake & Output 02/18 1600 02/18 0800 / 0000 02/17 1600 02/17 0800 02/17 0000 Intake Total 150 530 550 Output Total 50 Balance 100 530 550 Intake, IV 180 50 Intake, Oral 150 350 500 Output, 50 Emesis Patient 205 lb 210 lb Weight Weight Estimated Measurement Method Physical Exam: She is in no distress HEENT exam normal Chest is clear Heart regular rhythm and no murmurs Current Medications: Current Medications Sig/Casie Start time Last Medication Dose Route Stop Time Status Admin Acetaminophen 650 MG Q6P PRN 02/17 1100 AC PO Apixaban 5 MG BID 02/17 2200 AC 02/18 PO 0955 Aspirin 81 MG DAILY 02/18 1000 AC 02/18 PO 1052 Calcium Carbonate 500 MG ONCE ONE 02/17 2015 DC 02/17 PO 02/17 Cholecalciferol 1,000 IU DAILY 02/17 1000 AC 02/18 PO 1052 Cyanocobalamin 1,000 MCG DAILY 02/17 1000 AC 02/18 PO 1052 Diltiazem HCl 125 MG Q12H 02/17 0600 DC 02/17 Sodium Chloride 100 ML IV 0624 Dronedarone 400 MG BID 02/17 1500 AC 02/18 PO 0955 Heparin Sodium 25,000 UNIT Q24H 02/17 1000 DC 02/17 (Porcine) IV 02/17 2100 1302 Sodium Chloride 500 ML Metoprolol Succinate 12.5 MG DAILY 02/18 1000 AC PO Multivitamins 1 TAB DAILY 02/17 1000 AC 02/18 PO 1052 Omeprazole 40 MG DAILY AC 02/17 0945 AC 02/18 PO 0559 Oxybutynin Chloride 2.5 MG TID 02/17 1000 AC 02/18 PO 1052 Pravastatin Sodium 10 MG 1700 02/17 1700 AC 02/17 PO 1634 Senna/Docusate Sodium 1 TAB BID PRN 02/17 1100 AC PO Tramadol HCl 50 MG Q6P PRN 02/17 1100 AC PO Results Last 48 Hrs of Labs/Mics: Laboratory Tests 02/18/17 0635: CBC w Diff NO MAN DIFF REQ, RBC 4.16 L, MCV 94.0, MCH 31.7 H, RDW 13.4, MPV 10.6 H, Gran % 68.1, Lymphocytes % 24.7, Monocytes % 5.6, Eosinophils % 1.2, Basophils % 0.4, Absolute Granulocytes 3.4, Absolute Lymphocytes 1.2, Absolute Monocytes 0.3, Absolute Eosinophils 0.1, Absolute Basophils 0, PUBS MCHC 33.7 02/17/17 1900: APTT Cancelled 02/17/17 1800: Troponin I Cancelled 02/17/17 1225: Troponin I < 0.01 02/17/17 0550: Anion Gap 10, Estimated GFR > 60, BUN/Creatinine Ratio 30.0 H, Glucose 93, Calcium 10.0, Magnesium 2.1, Total Bilirubin 0.6, AST 26, ALT 34, Alkaline Phosphatase 63, Troponin I < 0.01, Iwp-[id number] Pept 165 H, Total Protein 7.7, Albumin 4.7, Globulin 3.0, Albumin/Globulin Ratio 1.6, TSH 2.380, Free T4 0.92, PT 10.8, INR 1.03, CBC w Diff NO MAN DIFF REQ, RBC 4.79, MCV 94.1, MCH 31.4 H, RDW 13.3, MPV 9.9, Gran % 34.9 L, Lymphocytes % 55.1 H, Monocytes % 7.7, Eosinophils % 1.7, Basophils % 0.6, Absolute Granulocytes 1.9, Absolute Lymphocytes 3.0, Absolute Monocytes 0.4, Absolute Eosinophils 0.1, Absolute Basophils 0, PUBS MCHC 33.3 02/17/17 0545: Urinalysis LIGHT H, Urine Color STRAW, Urine Clarity HAZY H, Urine pH 7.0, Ur Specific [place] 1.010, Urine Protein NEG, Urine Ketones NEG, Urine Nitrite NEG, Urine Bilirubin NEG, Urine Urobilinogen 0.2, Ur Leukocyte Esterase NEG, Ur Microscopic SEDIMENT EXAMINED, Urine RBC 3-5, Urine Bacteria RARE H, Urine Mucus RARE, Urine Hemoglobin TRACE-INTACT, Urine Glucose NEG Recent Imaging Studies: CONCLUSIONS Moderate concentric left ventricular hypertrophy. Normal left ventricular ejection fraction visually estimated at >65% Abnormal relaxation filling pattern of the left ventricle for age (stage 1 diastolic dysfunction). The left atrium is normal in size. Mild thickening/calcification of the mitral valve leafleta. Mild mitral annular calcification. Focal thickening of the aortic valve cusps. No aortic stenosis. Mild aortic regurgitation. Pulmonary artery systolic pressure is normal. The aortic root and ascending aorta are upper limits of normal in diameter. Jose Rodriguez M.D. (Electronically Signed) Final Date: 18 February 2017 09:50 Assessment/Plan Assessment/Plan The patient has maintained sinus rhythm for the last 24 hours. She did have one episode of vomiting but otherwise no complaints. Her echocardiogram did not show any major abnormalities, just LVH. She is stable enough for discharge at this time. I would send her home on her current medical regimen in the hospital except that we can probably discontinue aspirin now that she is fully anticoagulated. She will be followed up in the office in one to 2 weeks. Continue telemetry? Not applicable
--- NOTE | 2017-02-20 13:38 | Discharge Summary ---
Visit Information Visit Dates Admission Date: 02/17/17 Discharge Date: 02/18/17 Hospital Course Course Attending Physician: BRIAN BROWN,TIFFANY Rockwell. Primary Care Physician: DARBY TOBAR MD Consulting Request: Consulting Specialty: Cardiology Consulting Physician: Dr. Rodriguez Reason for Consult: New onset atrial fibrillation Hospital Course: Ms. Bales is a 72 year old lady with a past medical history of hypertension, hyperlipidemia, intermittent palpitations, GERD, irritable bowel syndrome, osteopenia and chronic back pain. She presented to the hospital on 02/18/17 with sudden onset of palpitations, shortness of breath and retrosternal chest discomfort,she was admitted to telemetry, she remained in sinus rhythm for the next 24 hours,Serial EKGs and troponins were normal which ruled out acute coronary syndrome * Echocardiogram showed: Mild thickening/calcification of the mitral valve leafleta. Mild mitral annular calcification. No mitral regurgitation, Normal size left ventricle. Moderate concentric left ventricular hypertrophy. Normal left ventricular ejection fraction visually estimated at >65 %. No obvious regional wall motion abnormalities. Abnormal relaxation filling pattern of the left ventricle for age (stage 1 diastolic dysfunction), she was kept on cardizem drip and heparin drip till she everted to NSR 2. Hypertension * Continue home medication of metoprolol XL 12.5 mg daily (patient has taken dose this morning) 3. GERD * she was Start by mouth omeprazole 40 mg daily 4. Hyperlipidemia * Continue pravastatin 10 daily 5. Reported history of gait instability at home * PT evaluation showed that she is at fall risk of 5 or more 6. History of chronic back pain * Pain pathway by mouth Tylenol 650 mg Q 6 hrs PRN for mild pain, PO tramadol 50 mg Q 6 hrs PRN for moderate pain 7. History of irritable bowel syndrome * PO Senna S one tab twice a day when necessary for constipation 8. DVT prophylaxis * IV heparin drip 9. CODE STATUS * Full code Allergies: Coded Allergies: aspirin (UNKNOWN 02/17/17) ibuprofen (UNKNOWN 02/17/17) morphine (NAUSEA 02/17/17) Disposition Summary Disposition Principal Diagnosis: Atrial fibrillation Additional Diagnosis: -Hypertension - GERD (gastroesophageal reflux disease) -Hyperlipidemia -History of chronic back pain -History of irritable bowel syndro Discharge Disposition: home or self care Discharge Instructions General Discharge Information Code Status: Full Code Patient's Diet: heart healthy Patient's Activity: as tolerated Follow-Up Instructions/Appts: 1. PLEASE F/U WITH DR RODRIGUEZ WITHIN 2 WEEKS OF DISCHARGE. 2.PLEASE F/U WITH YOUR PCP WITHIN 1 WEEK OF DISCHARGE. 3. STOPPED ASPIRIN FOR NOW. Medications at Discharge Discharge Medications: Stop taking the following medications: Aspirin (Aspirin*) 81 MG TAB.CHEW ORAL DAILY Ginkgo Biloba (Ginkgo Biloba) 40 MG CAPSULE ORAL DAILY Continue taking these medications: Metoprolol Succ XL (Toprol XL) 25 MG TAB 0.5 Tablet ORAL DAILY Comments: NOT GIVEN Pravastatin Sodium (Pravastatin Sodium) 10 MG TABLET 10 Milligram ORAL DAILY Qty = 90 Comments: GIVEN 02/17/17 @ 4:30PM Dexlansoprazole (Dexilant) 60 MG CAP.DRMelaniaBP 60 Milligram ORAL DAILY Qty = 90 Comments: NOT GIVEN Multivit-Min/Iron/Folic/Lutein (Centrum Silver Women Tablet) 8 MG IRON-400 MCG- 300 MCG TABLET 8 Milligram ORAL DAILY Comments: GIVEN 02/18/17 @ 1050 Cyanocobalamin (Vitamin B-12) 1,000 MCG TABLET 1,000 Microgram ORAL DAILY Comments: GIVEN 02/18/17 @ 1050 Methylcellulose (Citrucel) 500 MG TABLET 1,000 Milligram ORAL DAILY Comments: NOT GIVEN Cholecalciferol (Vitamin D3) (Vitamin D3) 1,000 UNIT CAPSULE 1,000 Unit ORAL DAILY Comments: GIVEN 02/18/17 @ 1050 Tolterodine Tartrate (Detrol LA) 4 MG CAP.ER.24H 1 Capsule ORAL DAILY Comments: GIVEN 02/18/17 @ 1050 Start taking the following new medications: Dronedarone HCl (Multaq) 400 MG TABLET 1 Tablet ORAL TWICE DAILY Days = 30 No Refills Comments: GIVEN 02/18/17 @ 1000 Apixaban (Eliquis) 5 MG TABLET 1 Tablet ORAL TWICE DAILY Days = 30 No Refills Comments: GIVEN 02/18/17 @ 1000 Copies To: EKATERINA BROWN,DARBY Rockwell; TEMO BROWN,HANSEL Baxter Attending MD Review Statement Documenting Attending: ESME CONNOR MD Other Findings: The patient was seen and discussed with house staff. Agree with the plan of care upon discharge.
== END 2017-02-18 12:10 | DRG 310 ==
LOC: ERH 05:16 → 1NO 07:13 → ERHI 07:13 → ENRESERV 07:53 → ENTRNSPT 08:35 → 1NO 09:16 → EDTRNSPTSTS 09:16 → CMPTRNSPT 09:32 → 1NO 02-18 12:10
PROVIDERS: Emergency Medicine; Internal Medicine; ADMIT Internal Medicine
DX: I48.0 Paroxysmal atrial fibrillation (principal); I10 Essential (primary) hypertension; E78.5 Hyperlipidemia, unspecified; R00.2 Palpitations; K21.9 Gastro-esophageal reflux disease without esophagitis; K58.9 Irritable bowel syndrome, unspecified; M85.80 Other specified disorders of bone density and structure, unspecified site; M54.9 Dorsalgia, unspecified; G89.29 Other chronic pain; E78.00 Pure hypercholesterolemia, unspecified; Z96.652 Presence of left artificial knee joint; Z87.891 Personal history of nicotine dependence; I49.3 Ventricular premature depolarization
CPT/HCPCS: 1NP; 36415; 81001; 93005; 93010; 93306; 96374; 97116-GO; 97161-GP; 97530-GO; 99291; J1644; J1650; J3490